=== PATIENT | female | born 1960 | race Caucasian/White ===

== ENCOUNTER 2019-01-19 09:25 | Emergency (ER) | payer OTHER ==
--- NOTE | 2019-01-19 10:20 | Diagnostic Imaging Report ---
PATIENT MR#: [id number] PATIENT PATIENT NAME: EVIN MADRID DATE OF : 1960 REFERRING PHYSICIAN: MONA LOUIS EXAM DATE: 01/19/2019 ACCESSION NUMBER: [id number] EXAM DESCRIPTION: FOOT 3 VIEWS OR MORE Read by: Dr. Robert Garcia Transcribed by: Robert Garcia Transcribed Date: 01/19/2019 10:19:19 AM Electronically signed by: Dr. Robert Garcia Date signed: 01/19/2019 10:19:56 AM
[2019-01-19] MEDS ORDERED: KETOROLAC TROMETHAMINE 60 MG/2 ML VIAL IM ONE (10:26)
--- NOTE | 2019-01-19 10:28 | ED Physician Documentation ---
Lower Extremity Injury - HISTORIAN Historian: patient - HPI Stated Complaint: injury left foot Chief Complaint: Lower Extremity Injury Onset: other (last night) Where: home Context: fall (slipped on puddle of water at home), twist Associated Symptoms:: other (pain with weight bearing.) Modifying Factors:: pain on movement - ROS CONST: denies: no problems, recent illness, fever, chills, other CVS/RESP: none GI/: denies: problems urinating, nausea, vomiting, other MS/SKIN/LYMPH: none NEURO: denies: headache, head injury, anxiety, depression - PAST HX Past History: other (HTN, HLD, depression) Allergies/Adverse Reactions: Allergies Allergy/AdvReac Type Severity Reaction Status Date / Time No Known Allergies Allergy Verified 01/19/19 09:41 - SOCIAL HX Smoking History: non-smoker - FAMILY HX Family History: denies: none - VITAL SIGNS Vital Signs: Vital Signs Temp Pulse Resp BP Pulse Ox 98.1 F 61 14 131/62 97 01/19/19 09:25 01/19/19 11:00 01/19/19 11:00 01/19/19 11:00 01/19/19 11:00 - REVIEWED ASSESSMENTS Nursing Assessment Reviewed: Yes Vitals Reviewed: Yes Progress - Progress Progress: Discussed xray results with patient and plan of care. Discussed cast verses ortho boot. Risks and benifits explained. Instructed patient aon no weight bearing, rest, elevation and close follow up . Placed in an ortho boot. Patient to schedule follow up in 2-3 days. Verbalized understanding of no weight bearing. ED Results Lab/Radiology - Radiology Radiology Impressions: Addendum: CLINICAL HISTORY: LEFT FOOT PAIN AFTER FALL YESTERDAY COMPARISON: No study for comparison is available at the time of interpretation. TECHNIQUE: DX left foot, 3 views Osseous structures: There is a nondisplaced fracture at the base of the 5th metatarsal. Plantar calcaneal spur at the plantar fascia insertion, which may predispose to plantar fasciitis. Joint spaces: There is moderate DJD of the 1st metatarsophalangeal joint. Soft tissues: There is soft tissue swelling lateral to the 5th metatarsal base. IMPRESSION: 1. Nondisplaced Torres fracture at the base of the 5th metatarsal. 2. 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 3. Plantar calcaneal spur. Findings discussed with Masha Tejeda at the time of interpretation. Dr. Robert Garcia - Orders Orders: ED Orders Category Date Time Status Alessandro Wrap Affected Extremity 1T Care 01/19/19 10:26 Active Apply ice to affected area NOW Care 01/19/19 09:45 Active Walking Boot 1T Care 01/19/19 10:26 Active XRAY FOOT [FOOT 3 VIEWS OR MORE] [RAD] Stat Exams 01/19/19 Completed Ketorolac Tromethamine [Toradol] Med 01/19/19 10:26 Discontinued 60 mg IM NOW ONE Lower Extremities Injury Phy - Physical Exam General Appearance: mild distress Hips: bilateral hip: non-tender, normal inspection, normal range of motion Legs: bilateral: non-tender, normal inspection, normal range of motion Knees: bilateral: non-tender, normal inspection, normal range of motion Ankle: bilateral: non-tender, normal inspection, normal range of motion Foot: right foot: non-tender, normal inspection, normal range of motion, no evidence of injury, left foot: pain, soft tissue tenderness (significant edema noted in lateral aspect), swelling, other (significant ecchymosis) Gait: limited by pain Neuro/Vascular/Tendon: no vascular compromise, motor nml, sensation nml Resp/CVS: no resp. distress, reg. rate & rhythm Discharge Clincal Impression: Torres fracture Qualifiers: Encounter type: initial encounter Fracture type: closed Laterality: left Qualified Code(s): S99.192A - Other physeal fracture of left metatarsal, initial encounter for closed fracture Referrals: Louise Humphreys MD [Primary Care Provider] - 2 Days Additional Instructions: No weight bearing. Rest Ice Elevation Call orthopedics for a follow up appointment in the next 2-3 days. Take your disc and report to the appointment. Do not get your OCL splint wet. Place extremity in a trash bag to shower. Condition: Stable Disposition: 01 HOME, SELF-CARE Decision to Admit: NO Decision Time: 10:28
[2019-01-19 11:04] VITALS: BP 131/62
== END 2019-01-19 10:56 | disposition home or self-care (01) ==
LOC: ED 09:25
DX: S99.192A Other physeal fracture of left metatarsal, initial encounter for closed fracture (principal); W01.0XXA Fall on same level from slipping, tripping and stumbling without subsequent striking against object, initial encounter; Y92.009 Unspecified place in unspecified non-institutional (private) residence as the place of occurrence of the external cause
CPT/HCPCS: 73630; 96372; 99283; J1885